=== PATIENT | female | born 1990 | race African-American/Black ===

== ENCOUNTER 2021-03-06 16:53 | Emergency (ER) | payer MEDICAID, OTHER ==
[~2021-03-06] VITALS: Ht 162.6 cm; Wt 70.0 kg
[2021-03-06] MEDS ORDERED: LIDO:MAALOX 1:1 20 ML SINGLE DOSE. PO ONE (17:15)
--- NOTE | 2021-03-06 17:19 | PHYS DOC ---
Past History Past Medical History: No Pertinent History, GERD Additional Past Medical Histor: EOE (GEO WELLS APRN) Past Surgical History: No Surgical History (GEO WELLS APRN) Smoking: Non-smoker Alcohol Use: None Drug Use: None (GEO WELLS APRN) General Adult EDM: Chief Complaint: DIFFICULTY SWALLOWING HPI: HPI: Patient is a 30-year-old female who presents to the emergency department for difficulty swallowing. Patient has EOE and takes Protonix daily. She states that she tried to take ibuprofen this morning and was unable to swallow it. Patient denies fever, nausea, vomiting, shortness of breath, foreign body. (GEO WELLS APRN) Review of Systems: Review of Systems: HENT: See HPI Respiratory: See HPI GI: See HPI (GEO WELLS APRN) Allergies: Allergies: Allergies Coded Allergies Type Severity Reaction Last Updated Verified No Known Drug Allergies 03/06/21 No (GEO WELLS APRN) Physical Exam: PE: Constitutional: Well developed, well nourished, no acute distress, non-toxic appearance. [] HENT: Normocephalic, atraumatic, bilateral external ears normal, patient maintaining secretions, uvula midline, no trismus, no oropharyngeal edema or swelling, no erythema, oropharynx moist, no oral exudates, nose normal. [] Eyes: PERRL, EOMI, conjunctiva normal, no discharge. [] Neck: Normal range of motion, no tenderness, supple, no stridor. [] Cardiovascular:Heart rate regular rhythm, no murmur [] Lungs & Thorax: Bilateral breath sounds clear to auscultation [] Abdomen: Bowel sounds normal, soft, no tenderness, no masses, no pulsatile masses. [] Skin: Warm, dry, no erythema, no rash. [] Back: Normal range of motion Extremities: No tenderness, no cyanosis, no clubbing, ROM intact, no edema. [] Neurologic: Alert and oriented X 3, normal motor function, normal sensory function, no focal deficits noted. [] Psychologic: Affect normal, judgement normal, mood normal. [] (GEO WELLS APRN) Current Patient Data: Vital Signs: Vital Signs Date Time Temp Pulse Resp B/P (MAP) Pulse Ox O2 Delivery O2 Flow Rate FiO2 03/06/21 17:02 98.2 83 18 139/81 (100) 100 Room Air (GEO WELLS APRN) EKG: EKG: [] (GEO WELLS APRN) Radiology/Procedures: Radiology/Procedures: [] (GEO WELLS APRN) Heart Score: C/O Chest Pain: N/A Risk Factors: Risk Factors: DM, Current or recent (<one month) smoker, HTN, HLP, family history of CAD, obesity. Risk Scores: Score 0 - 3: 2.5% MACE over next 6 weeks - Discharge Home Score 4 - 6: 20.3% MACE over next 6 weeks - Admit for Clinical Observation Score 7 - 10: 72.7% MACE over next 6 weeks - Early Invasive Strategies (GEO WELLS APRN) Course & Med Decision Making: Course & Med Decision Making Pertinent Labs and Imaging studies reviewed. (See chart for details) [] Patient presents to the emergency department for difficulty swallowing. Patient has a history of EOE and she takes Protonix daily. Patient given a GI cocktail. She was also p.o. challenge in the emergency department. Patient was able to drink half of the GI cocktail but states that she is unable to swallow the remainder. Blood work and CT imaging of patient's neck was ordered. I spoke with patient and stated that if she is unable to swallow, she will need to be transferred to a hospital with GI capability. Patient states that she does not want to be transferred and she has 2 children at home. Patient asked if she could just go to the other hospital with GI. I told her that she would have to sign out AGAINST MEDICAL ADVICE as I have advised her to have blood work, imaging and EMS transfer to a facility with GI capability. I discussed the risks associated with leaving AGAINST MEDICAL ADVICE with patient which includes worsening of condition, choking, and . She acknowledges the risks associated with leaving AGAINST MEDICAL ADVICE. Patient signed out AGAINST MEDICAL ADVICE, AMA papers signed. (GEO WELLS APRN) Dragon Disclaimer: Mckenzie Disclaimer: This electronic medical record was generated, in whole or in part, using a voice recognition dictation system. (GEO WELLS APRN) Attending Co-Sign The patient was seen and interviewed as well as examined at the bedside. The chart was reviewed. The case was discussed. Agree with the plan of care. (CHERRY COFFEY DO) Departure Departure: Impression: Primary Impression: Esophagitis Disposition: 07 LEFT AGAINST MEDICAL ADVICE Condition: GUARDED Referrals: JUDIT POTTS MD (PCP) GEO WELLS APRN Mar 06, 2021 17:19 CHERRY COFFEY DO Mar 08, 2021 06:18
[2021-03-06 17:55] VITALS: BP 137/77
== END 2021-03-06 17:59 | disposition left against medical advice (07) ==
LOC: ER 16:53
DX: K20.90 Esophagitis, unspecified without bleeding (principal)
CPT/HCPCS: 36415; 99282-25